=== PATIENT | male | born 1975 | race Asian ===

== ENCOUNTER 2024-07-19 06:25 | Day surgery (SDC) | payer OTHER, SELFPAY | END 2024-07-19 14:45 | disposition home or self-care (01) | LOC: GI 06:25 | PROVIDERS: ATTENDING PHYSICIAN Internal Medicine Gastroenterology | DX: Z12.11 Encounter for screening for malignant neoplasm of colon (principal); K64.8 Other hemorrhoids; D12.4 Benign neoplasm of descending colon; D12.7 Benign neoplasm of rectosigmoid junction; K63.5 Polyp of colon | CPT/HCPCS: 45385; 45380; 88305 ==